=== PATIENT | male | born 1995 | race Caucasian/White ===

== ENCOUNTER 2016-08-26 09:43 | Observation (INO) ==
[2016-08-26] MEDS ORDERED: TYLENOL PO PRN (10:20)
[2016-08-26] MEDS ORDERED: ZOFRAN IV PRN (10:20)
[2016-08-26] MEDS ORDERED: NS 1,000 ML IV ONE (10:22)
[2016-08-26] MEDS ORDERED: LOMOTIL PO PRN (10:26)
[2016-08-26 10:50] LABS: MANUAL DIFF NEEDED? NO
[2016-08-26 10:56] LABS: ALLEN TEST YES; BE -6.9 mmoll (-3.0-3.0); BLOOD TYPE ARTERIAL; DRAW SITE R RADIAL; METHB 1.2 % (0.0-1.5); O2(CT) 23.4 mL/dL (15.0-23.0); PCO2(98.6) 34 mmHg (35-45); PO2(98.6) 96 mmHg (60-100); SAMPLE BLOOD; SAO2 98.4 % (95.0-100.0); THB 17.4 g/dL (11.5-17.4); pH(98.6) 7.33 (7.35-7.45)
[2016-08-26 11:08] LABS: BASO% 0.1 % (0.0-0.8); EOS# 0.06 X1000 (0.0-0.7); EOS% 0.5 % (0.0-10.0); HEMATOCRIT 49.6 % (42.0-52.0); HEMOGLOBIN 16.8 g/dL (14.0-18.0); IMM GRAN# 0.02 X1000 (0.0-0.04); IMM GRAN% 0.2 % (0.0-0.5); LYMPH# 1.61 X1000 (1.2-3.4); MCH 30.3 PG (27-31); MCHC 33.9 g/dL (33-37); MCV 89.4 FL (81-99); MONO# 1.37 X1000 (0.11-0.59); MONO% 11.9 % (1.7-9.3); MPV 10.1 FL (7.4-10.4); NEUT% 73.3 % (42.2-75.2); PLT 306 X1000 (130-400); RBC 5.55 XMIL (4.7-6.1)
[2016-08-26 11:39] LABS: AGAP 20; ALBUMIN 4.7 g/dL (3.5-5.0); ALKALINE PHOSPHATASE 79 U/L (32-122); AMYLASE 33 U/L (20-200); BUN 25 mg/dL (8-22); CALCIUM 9.7 mg/dL (8.8-10.2); CHLORIDE 101 mmol/L (98-107); COSMO 284; GOT 20 U/L (10-34); GPT 12 U/L (10-44); LIPASE 21 U/L (13-60); POTASSIUM 4.8 mmol/L (3.5-5.1); SODIUM 138 mmol/L (136-145); TCO2 17 mmol/L (25-35); TOTAL BILIRUBIN 1.15 mg/dL (0.20-1.00); TOTAL PROTEIN 8.2 g/dL (6.3-8.3)
[2016-08-26] MEDS: NS + KCL 20 MEQ 1,000 ML IV SCH ×2 (11:46→18:01)
[2016-08-26] MEDS: HUMULIN R SUBQ SCH ×3 (12:32→21:16)
[2016-08-26 17:55] LABS: URINE CULTURE NEEDED? NO; URINE MICRO REVIEW NEEDED? NO; URINE SOURCE CLEAN CATCH
[2016-08-26 18:09] LABS: BILIRUBIN URINE NEGATIVE (NEGATIVE); BLOOD URINE NEGATIVE (NEGATIVE); COLOR YELLOW; GLUCOSE URINE >1000 mg/dL (NEGATIVE); LEUKOCYTES URINE NEGATIVE (NEGATIVE); NITRITE URINE NEGATIVE (NEGATIVE); PH URINE 5.5; PROTEIN URINE NEGATIVE (NEGATIVE); SP GRAVITY URINE 1.043; TURBIDITY URINE CLEAR (CLEAR); UROBILINOGEN URINE NORMAL (NORMAL)
[2016-08-26 18:10] LABS: UR EPITHELIAL CELLS <10 /HPF (<10); URINE BACTERIA NEGATIVE /HPF; URINE RBC <10 /HPF (<10); URINE WBC <10 /HPF (<10)
[2016-08-27] MEDS: NS + KCL 20 MEQ 1,000 ML IV SCH ×2 (00:14→06:33)
--- NOTE | 2016-08-27 03:48 | HISTORY AND PHYSICAL ---
CHIEF COMPLAINT: Vomiting and diarrhea. Lightheadedness when standing. HISTORY OF PRESENT ILLNESS: The patient is a 21-year-old white male followed in my medical practice who suffers from fairly severe type 2 diabetes mellitus. He comes in with a 3-day history of prominent nausea and vomiting, about 4-5 episodes of emesis each day and copious amounts of watery bowel movements, 2-3 per hour for the last couple of days. He has had some abdominal cramping, pressure and bloating. Denies any AGE exposure or unusual foods that he can recall. He has not had not had any foreign travel. Blood sugars despite the illness have been ranging in the 200s he says. He feels like he has been vomiting up his oral diabetic medications for the last couple of days. MEDICATIONS PRIOR TO ADMISSION: Zoloft 100 mg 2 p.o. daily, BuSpar 15 mg p.o. t.i.d., Jardiance 25 mg p.o. q.a.m., Amaryl 4 mg 1 p.o. b.i.d., Janumet one p.o. b.i.d. Lipitor 20 mg p.o. at bedtime, aspirin 81 mg daily. ALLERGIES: Penicillin, PAST MEDICAL HISTORY: 1. History of pyloric stenosis as an treated with successful surgery, May 1995. 2. Type 2 diabetes mellitus diagnosed April 2013. 3. Hypercholesterolemia diagnosed April 2013. 4. History of obesity, improved over time. PAST SURGICAL HISTORY: History of pyloric stenosis surgery, May 1995. IMMUNIZATIONS: Patient had Menactra in January 2016, TDAP in December 2015. Otherwise, he is up- to-date on his childhood immunizations. FAMILY HISTORY: Notable for type 2 diabetes mellitus in an uncle, maternal grandmother, paternal grandfather and 6 cousins. IN in both great-grandmothers and both great-grandfathers. Also IN in maternal grandmother and paternal grandfather. Maternal grandfather with CHF. SOCIAL HISTORY: The patient is a student at the [employer]. He is home for the summer. No significant alcohol or smoking history. He is single. REVIEW OF SYSTEMS: Negative except as above. PHYSICAL EXAMINATION: VITAL SIGNS: Weight 210 pounds which is down about 18 pounds in the past 7 months. Blood pressure 110/70, pulse 79. GENERAL: Pale, ill-appearing white male, lightheaded if he sits up. Some flushing to the cheeks noted. SKIN: No rash otherwise. Slightly poor skin turgor. HEENT: PERRL. EOMI. Sclerae are anicteric. OP: Slightly dry mucous membranes. OP: No redness. NECK: No LA, TMG, JVD, bruits. CV: RRR without murmur. LUNGS: CTA. ABDOMEN: Soft. No pinpoint tenderness. No mass or organomegaly. No rebound or guarding. GENITOURINARY/RECTAL: Deferred. EXTREMITIES: No CCE. NEUROLOGIC: Cranial nerves 2-12 are intact. ASSESSMENT: 1. Acute gastroenteritis. 2. Mild dehydration. 3. Moderate type 2 diabetes mellitus. 4. Hypercholesterolemia. 5. History of obesity with weight loss in the last few months. 6. Remote history of pyloric stenosis with treatment with surgery as an . PLAN: We will admit the patient for 23-hour observation and bolus him with normal saline and give him vigorous IV rehydration. We will monitor serial Accu-Cheks and give him SSI, holding his home medications. Place him on clear liquids. Give him Zofran and Lomotil as needed. Check extensive stool studies. Will follow the patient clinically. Check labs to include serum ketones, ABG, CBC, CMP, amylase, lipase. cc: Dieter Monson MD
[2016-08-27] MEDS: HUMULIN R SUBQ SCH (06:33)
[2016-08-27 07:41] VITALS: BP 132/74
[2016-08-27] MEDS ORDERED: SALINE LOCK IV FLUID XX ONE (08:23)
--- NOTE | 2016-08-27 12:40 | PROGRESS NOTE ---
DATE: 08/27/2016 SUBJECTIVE: Patient has had no significant bowel movements in the past 12 hours. No nausea or vomiting. No significant abdominal pain. Says he is feeling quite a bit better. OBJECTIVE: Vital signs: Afebrile. Pulse 63. Respirations 16. Blood pressure 132/74, O2 saturation room air 100%. CARDIOVASCULAR: Regular rhythm and rate without murmur. Lungs: Computed tomography angiography. Abdomen: Soft, nontender, nondistended. No mass. No hepatosplenomegaly. Extremities: No edema. LABORATORY: Stool studies negative for occult blood. White blood cells and C. difficile toxin. Culture in progress. Laboratory yesterday and ABG reviewed and overall good except for minor elevation in white count to 11.4. Acetone level was negative. ASSESSMENT: 1. Acute gastroenteritis, improving. 2. Mild dehydration. 3. At least moderate type 2 diabetes mellitus. 4. Hypercholesterolemia. 5. History of obesity with prominent weight loss in the last few months. 6. Remote history of pyloric stenosis treated with surgery as an . PLAN: We will saline lock his IV. Ambulate. Advance diet to ADA diet and if he does well, we will discharge him home on a partial diabetic medications later in the day. cc: Dieter Monson MD
== END 2016-08-27 11:00 | disposition home or self-care (01) ==
LOC: DIRADM → 4N 09:43
PROVIDERS: ADMIT Family Medicine; ATTEND Family Medicine